=== PATIENT | female | born 1980 | race Caucasian/White ===

== ENCOUNTER 2018-10-12 19:00 | Emergency (ER) | payer MEDICAID, SELFPAY ==
[2018-10-12 19:07] VITALS: BP 126/76; PULSE 76; RESP 14; TEMP 36.9; O2SAT 98
--- NOTE | 2018-10-12 19:14 | ED.GENADUL_ITS ---
Discharge Plan Disposition Patient Disposition: HOME Condition: Stable Discharge Details Chief Complaint: RashLesion Clinical Impression: Urticaria Primary Care Provider: Gala Matute ED Provider: Jin Johnson M[place] Meds and New Rx's Prescriptions: New prednisone 20 mg tablet 60 mg PO DAILY 4 Days Qty: 12 RF: 0 No Action epinephrine 0.3 mg/0.3 mL auto-injector 0.3 mg IM ONCE RF: 0 albuterol sulfate [ProAir HFA] 90 mcg/actuation HFA aerosol inhaler 2 puff IH QID PRNRF: 0 triamcinolone acetonide 0.1 % cream 1 applic TP BID PRNRF: 0 sumatriptan succinate 50 mg tablet 50 mg PO Q2H PRN (Reason: migraine headache) Qty: 60 RF: 4 Caziant (28) 0.1/.125/.15-25 mg-mcg tablet 1 tab PO DAILY Qty: 84 RF: 4 bupropion HCl 300 mg tablet extended release 24 hr 300 mg PO QAM Qty: 90 RF: 3 hydroxyzine HCl 25 mg tablet 25 mg PO TID PRN (Reason: itching) Qty: 90 RF: 4 acyclovir 400 mg tablet 400 mg PO 5X/DAY PRN (Reason: herpes labialis) Qty: 25 RF: 3 clonazepam 0.5 mg tablet 0.5 mg PO BID PRN (Reason: anxiety) Qty: 20 RF: 0 Discharge Instructions Instructions: Urticaria (ED) Additional Instructions: follow up with your primary care provider within a week if you have difficulty breathing, abdominal pain, persistent vomit or fevers return to the emergency department for reevaluation Medical Decision Making 38 yo female come sin with itching rash on entire body for a week. Denies new meds or detergents but was at her [employer] swimming last week. She states last Saturday started with itching rash that hasn't improved with otc remedies. She has multiple areas of mild erythema on her torso and arms and legs that is not warm to touch, tender and blanches. no mucous membrane involvement and no respiratory or gi symptoms. seems consistent with urticaria, will start steroids and have her f/u with pcp, return precautions given Differential Diagnosis urticaria, dermatitis HPI General Mode of arrival: ambulatory . Date/Time Provider Initiated Documentation: 10/12/18 19:04 . Limitations to Documentation: no limitations . Information obtained by: patient . History of Present Illness 38 year old F presents to the emergency department with the chief complaint of rash, Patient reports radiation to back and abdomen. Patient started experiencing this week(s) (1) and it has been constant. No relieving factors improve symptom(s), No exacerbating factors reported . Patient did receive the following treatments prior to arrival, none Related Data Home Medications Medication Instructions Recorded Confirmed albuterol sulfate 90 mcg/actuation 2 puff IH QID PRN 11/26/17 09/26/18 aerosol inhaler epinephrine 0.3 mg/0.3 mL 0.3 mg IM ONCE 11/26/17 09/26/18 injection, auto-injector triamcinolone acetonide 0.1 % 1 applic TP BID PRN 11/26/17 09/26/18 topical cream desogestrel-ethinyl estradiol 1 tab PO DAILY #84 tab 02/12/18 09/26/18 bupropion HCl 300 mg 24 hr tablet, 300 mg PO QAM #90 tab 06/15/18 09/26/18 extended release hydroxyzine HCl 25 mg tablet 25 mg PO TID PRN #90 tab 06/15/18 09/26/18 acyclovir 400 mg tablet 400 mg PO 5X/DAY PRN #25 tab 09/15/18 09/26/18 sumatriptan succinate 50 mg tablet 50 mg PO Q2H PRN #60 tab 09/26/18 09/26/18 clonazepam 0.5 mg tablet 0.5 mg PO BID PRN #20 tab 10/08/18 prednisone 60 mg PO DAILY 4 Days #12 tab 10/12/18 Previous Rx's Medication Instructions Recorded desogestrel-ethinyl estradiol 1 tab PO DAILY #84 tab 02/12/18 bupropion HCl 300 mg 24 hr tablet, 300 mg PO QAM #90 tab 06/15/18 extended release hydroxyzine HCl 25 mg tablet 25 mg PO TID PRN #90 tab 06/15/18 acyclovir 400 mg tablet 400 mg PO 5X/DAY PRN #25 tab 09/15/18 sumatriptan succinate 50 mg tablet 50 mg PO Q2H PRN #60 tab 09/26/18 clonazepam 0.5 mg tablet 0.5 mg PO BID PRN #20 tab 10/08/18 prednisone 60 mg PO DAILY 4 Days #12 tab 10/12/18 Allergies Allergy/AdvReac Type Severity Reaction Status Date / Time venom-honey bee Allergy Severe Unverified 10/12/18 19:11 General Stated Complaint: RashLesion CARLITO: 4 Review of Systems Review of Systems All systems reviewed & are unremarkable except as noted in HPI and below Constitutional Denies chills and Denies fever(s) Cardiovascular Denies chest pain and Denies dyspnea Respiratory Denies cough and Denies dyspnea Gastrointestinal Denies abdominal pain, Denies nausea and Denies vomiting Musculoskeletal Denies joint swelling Psychiatric Denies depression [facility] Medical History (Updated 10/10/18 @ 10:28 by Reid Bradley) Migraine headache without aura (Acute) Surgical History (Updated 10/10/18 @ 10:28 by Reid Bradley) Fracture, Open Treatment (~2006) Family History Mother No problems noted. Father No problems noted. Brother No problems noted. 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 Pets and animals: No Duration: 30-45 minutes/day Frequency: 3-4 times per week Quin/Rastafarian: No preference Special quin needs: No Do you feel safe at home: Yes Do you feel safe in your relationship?: Yes Exam Const General: no acute distress Orientation: alert HENMT Head: normal to inspection Ears: external ears normal General nose exam: external nose normal Mouth: moist mucous membranes Eyes General: appearance normal, both eyes and all related structures Neck Neck: normal visual inspection Resp Effort & Inspection: normal respiratory effort and able to speak in complete sentences Cardio Rate: regular rate Skin General skin exam: elasticity normal Neuro General: alert and oriented x3 Extrem General: normal to inspection Psych Mental Status: mental status grossly normal Course Vital Signs Temperature 36.9 C 10/12/18 19:07 Pulse 76 10/12/18 19:07 Respiratory Rate 14 10/12/18 19:07 Blood Pressure 126/76 10/12/18 19:07 Pulse Oximetry 98 10/12/18 19:07 Temperature 36.9 C 10/12/18 19:07 Temperature Source Skin 10/12/18 19:07 Pulse 76 10/12/18 19:07 Respiratory Rate 14 10/12/18 19:07 Respiratory Effort Non-Labored 10/12/18 19:10 Blood Pressure 126/76 10/12/18 19:07 Blood Pressure Position Supine 10/12/18 19:07 Pulse Oximetry 98 10/12/18 19:07 Oxygen Delivery Method Room Air 10/12/18 19:07 Oxygen Flow Rate 0 10/12/18 19:07 Pain Level 0 10/12/18 19:07
[2018-10-12] MEDS: predniSONE 20 MG TAB 60 MG PO (19:24)
== END 2018-10-12 19:30 | disposition home or self-care (01) ==
PROVIDERS: Emergency Provider Emergency Medicine; PCP Family Medicine
DX: L50.9 Urticaria, unspecified (principal)
CPT/HCPCS: 99283; J7512

== ENCOUNTER 2019-01-18 14:24 | Emergency (ER) | payer MEDICAID, SELFPAY ==
--- NOTE | 2019-01-18 14:29 | ED.GENADUL_ITS ---
Discharge Plan Disposition Patient Disposition: HOME Condition: Improving Discharge Details Chief Complaint: Abd Prob Clinical Impression: Abdominal pain Primary Care Provider: Gala Matute ED Provider: Anthony Toro Home Meds and New Rx's Prescriptions: Continued epinephrine 0.3 mg/0.3 mL auto-injector 0.3 mg IM ONCE RF: 0 triamcinolone acetonide 0.1 % cream 1 applic TP BID PRNRF: 0 buspirone 7.5 mg tablet 7.5 mg PO BID Qty: 60 RF: 3 sumatriptan succinate 50 mg tablet 50 mg PO Q2H PRN (Reason: migraine headache) Qty: 60 RF: 4 mometasone 0.1 % cream 1 applic TP DAILY PRN (Reason: skin irritation) Qty: 50 RF: 0 Caziant (28) 0.1/.125/.15-25 mg-mcg tablet 1 tab PO DAILY Qty: 84 RF: 4 bupropion HCl 300 mg tablet extended release 24 hr 300 mg PO QAM Qty: 90 RF: 3 hydroxyzine HCl 25 mg tablet 25 mg PO TID PRN (Reason: itching) Qty: 90 RF: 4 acyclovir 400 mg tablet 400 mg PO 5X/DAY PRN (Reason: herpes labialis) Qty: 25 RF: 3 albuterol sulfate [ProAir HFA] 90 mcg/actuation HFA aerosol inhaler 2 puff IH QID PRN (Reason: bronchospasm) Qty: 18 RF: 6 clonazepam 0.5 mg tablet 0.5 mg PO BID PRN (Reason: anxiety) Qty: 20 RF: 0 Discharge Instructions Instructions: Abdominal Pain (ED) Additional Instructions: Follow-up with your primary care provider this week. Call tomorrow to schedule an appointment. Return to the emergency department immediately if you develop any fevers, weakness, passing out, or for any other concerning or worsening symptoms at all. Discharge Data Discharge Date/Time-TO BE ENTERED AT DEPARTURE: 01/18/19 16:56 Medical Decision Making <CARLOS A Ayala - Last Filed: 01/19/19 09:33> Patient is a 38-year-old female past medical history of herpes simplex, migraines, asthma, anxiety. She is presenting today with chief complaint of 3 days of abdominal pain. Indicates the left mid abdomen is area of maximal discomfort. Also reports she has had some epigastric pain after eating a large amount of ascitic food last night which is unusual for her. States she has a cyst in the left side of her abdomen which is no. This area seems to radiate to the left upper quadrant to mid left abdomen. She denies any nausea vomiting. No change in appetite. No change in bowel or bladder habits. States that she drinks socially but has not had any alcohol recently. Pain radiates into the back but she indicates that the SI joint and states that the pain on palpation. Reports that she has had a history of kidney stone but does not believe this feels the same. No hematuria. No dysuria or change in urinary habits. No vaginal discharge. Denies any melena or hematochezia. On exam, patient appears nontoxic. Vital signs within normal limits. Abdominal exam significant for tenderness in epigastric and left upper quadrants. No peritoneal findings, no guarding, no rebound. No CVA tenderness. Has pain with direct palpation over the left SI joint. This seems more consistent with muscular skeletal. Patient was given GI cocktail. Feels much improved. I advised that this is likely associated with her eating hot dogs that she does not do as well as spicy food. She is having tenderness in the left side, feel that imaging is appropriate. Is too high to be consistent with ovarian torsion. Patient endorses occasional alcohol use, have considered pancreatitis. Will obtain labs and CT scan. Patient does have a history of kidney stone, will obtain a urinalysis. However, she does not feel that this is consistent with the previous stone she has had. At the end of my shift, care was transitioned to Dr. Briceno with imaging pending. Labs reviewed with no significant abnormality. <Anthony Toro MD - Last Filed: 01/18/19 17:29> Patient CARE signed out at change of shift. CT scan came back without any acute abnormalities. Therefore, the patient will be discharged home. She will be provided return precautions and discharge instructions. She is feeling better. HPI <CARLOS A Ayala - Last Filed: 01/19/19 09:33> General Mode of arrival: ambulatory . Date/Time Provider Initiated Documentation: 01/18/19 14:28 . Limitations to Documentation: no limitations . Information obtained by: patient and RN notes reviewed . History of Present I llness 38 year old F presents to the emergency department with the chief complaint of left sided abdominal pain, described as moderate, with intensity rated at 7. Quality is described as aching, and is localized to the abdomen. Patient reports radiation to back (left SI joint). Patient started experiencing this day(s) (3) and it has been constant. Immobilization improves symptom(s), Eating worsens symptoms (causes increased pain in epigastric region) and Movement worsens symptoms . Patient notes denies chest pain, cough, diaphoresis, fever/chills, headaches, loss of appetite, nausea/vomiting, rash and shortness of breath. Patient did receive the following treatments prior to arrival, none Related Data Home Medications Medication Instructions Recorded Confirmed epinephrine 0.3 mg/0.3 mL 0.3 mg IM ONCE 11/26/17 01/18/19 injection, auto-injector triamcinolone acetonide 0.1 % 1 applic TP BID PRN 11/26/17 01/18/19 topical cream desogestrel-ethinyl estradiol 1 tab PO DAILY #84 tab 02/12/18 01/18/19 bupropion HCl 300 mg 24 hr tablet, 300 mg PO QAM #90 tab 06/15/18 01/18/19 extended release hydroxyzine HCl 25 mg tablet 25 mg PO TID PRN #90 tab 06/15/18 01/18/19 sumatriptan succinate 50 mg tablet 50 mg PO Q2H PRN #60 tab 09/26/18 01/18/19 mometasone 0.1 % topical cream 1 applic TP DAILY PRN #50 gm 10/21/18 01/18/19 buspirone 7.5 mg tablet 7.5 mg PO BID #60 tab 12/03/18 01/18/19 acyclovir 400 mg tablet 400 mg PO 5X/DAY PRN #25 tab 12/16/18 01/18/19 albuterol sulfate 90 mcg/actuation 2 puff IH QID PRN #18 gm 12/16/18 01/18/19 aerosol inhaler clonazepam 0.5 mg tablet 0.5 mg PO BID PRN #20 tab 12/16/18 01/18/19 Previous Rx's Medication Instructions Recorded desogestrel-ethinyl estradiol 1 tab PO DAILY #84 tab 02/12/18 bupropion HCl 300 mg 24 hr tablet, 300 mg PO QAM #90 tab 06/15/18 extended release hydroxyzine HCl 25 mg tablet 25 mg PO TID PRN #90 tab 06/15/18 sumatriptan succinate 50 mg tablet 50 mg PO Q2H PRN #60 tab 09/26/18 mometasone 0.1 % topical cream 1 applic TP DAILY PRN #50 gm 10/21/18 buspirone 7.5 mg tablet 7.5 mg PO BID #60 tab 12/03/18 acyclovir 400 mg tablet 400 mg PO 5X/DAY PRN #25 tab 12/16/18 albuterol sulfate 90 mcg/actuation 2 puff IH QID PRN #18 gm 12/16/18 aerosol inhaler clonazepam 0.5 mg tablet 0.5 mg PO BID PRN #20 tab 12/16/18 Allergies Allergy/AdvReac Type Severity Reaction Status Date / Time venom-honey bee Allergy Severe Unverified 01/18/19 14:42 General CARLITO: 4 Review of Systems <CARLOS A Ayala - Last Filed: 01/19/19 09:33> Constitutional Constitutional: Reports as per HPI, Denies chills, Denies fatigue, Denies fever(s) and Denies headache(s) ENT Ears, Nose, Mouth, and Throat: Denies headache(s) Cardiovascular Cardiovascular: Reports as per HPI, Denies chest pain and Denies dyspnea Respiratory Respiratory: Reports as per HPI, Denies cough and Denies dyspnea Gastrointestinal Gastrointestinal: Reports as per HPI Musculoskeletal Musculoskeletal: Reports as per HPI and Denies back pain Integumentary/Breasts Skin/Breast: Reports as per HPI and Denies rash Neurologic Neurologic: Reports as per HPI and Denies headache(s) Endocrine Endocrine: Denies fatigue PFSH <CARLOS A Ayala - Last Filed: 01/19/19 09:33> Medical History Migraine headache without aura (Acute) Surgical History Fracture, Open Treatment (~2006) left elbow Family History (Updated 12/04/18 @ 12:11 by Luc Martin) Mother No problems noted. Father No problems noted. Brother No problems noted. Aunt Cancer Maternal Uncle Pancreatic cancer STAGE 4 Maternal Cousin Bladder cancer Maternal Grandfather No problems noted. Paternal Grandfather No problems noted. Maternal Grandmother No problems noted. Paternal Grandmother No problems noted. Social History Smoking/Tobacco Use Status: Never Alcohol Intake: current Alcohol Intake frequency: a few times a week Drug use: Occasionally Substance use type: marijuana Details: had vianey today-2 Caregiver/Support person: No Housing: house Communication Needs: None current occupation: [employer] Pets and animals: No Sexually active: Yes Do you think of yourself as: straight/heterosexual Current gender identity: male What is your relationship status?: How often do you talk on the phone with friends or family?: three or more times per week How often do you get together with friends or relatives?: once per week How often do you attend confucianist or pentecostal services?: decline to answer Do you belong to any clubs or organized social groups?: no Panel score (0-1 are the most socially isolated patients): 1 What type of physical activity do you participate in: walking and other Duration: 15-30 minutes/day Frequency: 3-4 times per week Quin/Scientologist: None Special quin needs: No Seatbelt use: always Helmet use: Yes Helmet use: sometimes Drive intox or ride w/intox tractor driver: No Do you feel safe at home: Yes Do you feel safe in your relationship?: Yes Exam <CARLOS A Ayala - Last Filed: 01/19/19 09:33> Const General: cooperative, healthy appearing, comfortable, no acute distress and well developed Nutritional Appearance: average body habitus and well nourished Orientation: alert and awake [facility] [place] Head: normal to inspection Mouth: moist mucous membranes Resp Effort & Inspection: normal respiratory effort, able to speak in complete sentences and no respiratory distress Auscultation: clear to auscultation bilaterally, no rales, no rhonchi and no wheezes Cardio Rate: regular rate Rhythm: regular rhythm Heart Sounds: S1 normal and S2 normal GI Inspection: normal to inspection (post surgical changes, well healed midline incision, implantable device), no edema, non-distended, obesity, no visible herniation, no visible pulsation and No visible peristalsis Palpation: soft, no hepatosplenomegaly, not firm, no guarding, no hernias, not rigid and nontender Percussion: normal to percussion Auscultation: normal bowel sounds Rectal Exam - female: heme negative stool Back/Spine/Pelvis Back: no CVA tenderness Skin General skin exam: no rashes or lesions noted Trauma: no lacerations or abrasions Neuro General: alert and awake Cognition: normal cognition Speech: speech normal Extrem General: edema Laterality: bilateral (equal bilaterally with compression hose in place) Psych Appearance: grossly normal and well kempt Mental Status: mental status grossly normal Speech and Movement: speech and movement normal Sign Out <CARLOS A Ayala - Last Filed: 01/19/19 09:33> Sign Out Data: Sign Out Comment: At the end of my shift, care was transitioned to Dr. Toro with imaging pending. Labs are reassuring. Patient endorsing epigastric and left upper quadrant pain. Has received GI cocktail. If no acute pathology, plan to DC home with follow-up with primary care after reevaluation. Last updated by Belkys Doran PA at 01/18/19 16:01
[2019-01-18 14:38] VITALS: BP 109/57; PULSE 64; RESP 16; TEMP 36.6; O2SAT 100
[2019-01-18 14:52] LABS: Bilirubin Negative (Negative); Blood Negative (Negative); Clarity Clear (Clear); Glucose Negative (Negative); Ketones Negative (Negative); Leukocyte Esterase Small (Negative); Nitrite Negative (Negative); Urobilinogen 0.2 EU/dL (Up TO 0.2)
[2019-01-18 15:01] LABS: Bacteria Rare HPF (Negative); C & S Indicated? Yes; Casts Negative LPF (Negative); Crystals Negative HPF (Negative); Epithelial Cells Few HPF (Negative); Mucus Negative (Negative); RBC Negative (0-2)
--- NOTE | 2019-01-18 15:04 | DI.CT_ITS ---
EXAM: CT ABDOMEN PELVIS W CLINICAL HISTORY: left sided abdominal pain x 3 days TECHNIQUE: 100 cc of Omnipaque 350 IV. No oral contrast. COMPARISON: ABD PELVIS WITH CONTRAST from 05/19/2017 FINDINGS: The liver, gallbladder, spleen, pancreas, adrenals and kidneys are unremarkable. There is no free a ir or free fluid. The bowel is not well evaluated without oral contrast. No bowel dilatation or inf lammatory changes are seen. The appendix appears normal. The uterus, bladder and ovaries are unrema rkable. There are mild degenerative disc changes. IMPRESSION: Negative CT of the abdomen and pelvis. No acute abnormality.
[2019-01-18] MEDS: Normal Saline 1,000 ML 1000 ML IV (15:31)
[2019-01-18 15:40] LABS: Abs Immature Grans 0.02 k/cumm (0.0-0.09); Absolute Basophil Count 0.05 k/cumm (0.0-0.2); Absolute Lymphocyte Count 3.15 k/cumm (1.2-3.4); Absolute Monocyte Count 0.62 k/cumm (0.11-0.7); Absolute Neutrophil Count 6.02 k/cumm (1.2-6.7); Basophils % 0.5; HCT 38.6 % (36.0-46.0); HGB 13.1 g/dL (12.0-15.5); Immature Grans % 0.2; Lymphocytes % 31.9; Mean Corp. HGB Concentration 33.9 g/dL (32.0-36.0); Mean Corpuscular Hemoglobin 30.2 pg (27.0-33.0); Mean Corpuscular Volume 88.9 fL (80-95); Mean Platelet Volume 10.3 fL (8.0-11.0); Monocytes % 6.3; Neutrophils % 61.1; Platelet Count 357 x1000/uL (130-400); RBC 4.34 m/cumm (4.00-5.20); RBC Distribution Width 12.4 % (11.7-14.6); White Blood Cell Count 9.86 k/cumm (4.4-10.8)
[2019-01-18 15:46] LABS: Lipase 89 U/L (73-393)
[2019-01-18 15:49] LABS: ALT 36 U/L (14-59); AST 17 U/L (15-37); Albumin 3.7 g/dL (3.4-5.0); Alkaline Phosphatase 78 U/L (46-116); Anion Gap 7.4 mmol/L (3-11); BUN 14 mg/dL (7-18); Bilirubin, Total 0.4 mg/dL (0.2-1.0); CO2 29.6 mmol/L (21.0-32.0); CREATININE 0.72 mg/dL (0.55-1.02); Chloride 103 mmol/L (98-107); Glucose 64 mg/dL (70-100); Potassium 3.6 mmol/L (3.5-5.1); Sodium 140 mmol/L (136-145); Total Protein 7.2 g/dL (6.4-8.2)
[2019-01-18] MEDS: Omnipaque 350 MG/ML 100 ML BTL IJ (15:49)
--- NOTE | 2019-01-18 16:39 | DI.VRAD_ITS ---
PROCEDURE INFORMATION: Exam: CT Abdomen And Pelvis With Contrast Exam date and time: 01/18/2019 3:44 PM Clinical history: 38 years old, female; Abdominal pain TECHNIQUE: Imaging protocol: Computed tomography of the abdomen and pelvis with intravenous contrast. COMPARISON: CT ABD PELVIS WITH CONTRAST 05/19/2017 4:37 PM FINDINGS: Liver: Incidental note is made of focal fatty infiltration at the level of the fissure for the ligamentum teres, anatomic variant. Mild hepatomegaly. Gallbladder and bile ducts: Normal. No calcified stones. No ductal dilation. Pancreas: Normal. No ductal dilation. Spleen: Normal. No splenomegaly. Adrenals: Normal. No mass. Kidneys and ureters: Left renal cyst. Stomach and bowel: Unremarkable. No obstruction. No mucosal thickening. Appendix: The appendix fairly well seen, within normal limits area Intraperitoneal space: Unremarkable. No free air. No significant fluid collection. Vasculature: Unremarkable. No abdominal aortic aneurysm. Lymph nodes: Unremarkable. No enlarged lymph nodes. Bladder: Unremarkable as visualized. Reproductive: The uterus is displaced to the right, anatomic variant. Bones/joints: Unremarkable. No acute fracture. Soft tissues: Unremarkable. IMPRESSION: No acute abnormality seen to account for symptoms. COMMENT: Preliminary interpretation is based on receipt of 1081 image(s). A final report will be issued subsequently. Dictated and Authenticated by: Nikki Lopez MD. Ordering:ARAMIS Rizvi MD
[2019-01-18 16:50] VITALS: BP 112/64; PULSE 64; RESP 15; TEMP 36.6; O2SAT 100
== END 2019-01-18 16:56 | disposition home or self-care (01) ==
PROVIDERS: Physician Assistant; Emergency Provider Emergency Medicine; PCP Family Medicine
DX: R10.12 Left upper quadrant pain (principal); R10.13 Epigastric pain; Z87.442 Personal history of urinary calculi
CPT/HCPCS: 80053; 81025; 83690; 96360; 99285; 74177; 81003; 81015; 85025; 87086; 99284; J3490

== ENCOUNTER 2019-04-13 11:43 | Outpatient (CLI) | payer MEDICAID, SELFPAY ==
--- NOTE | 2019-04-13 13:33 | DI.US_ITS ---
EXAM: US RENAL CLINICAL HISTORY: + AND LEFT SIDED FLANK PAIN, O26.899 TRACE BLOOD, R10.9 ABDOMINAL PAIN TECHNIQUE: Ultrasound performed using standard protocol. COMPARISON: US OB 1ST TRIMESTER from 04/13/2019 FINDINGS: An intrauterine gestation is noted. The kidneys are normal in size and echogenicity and show normal parenchymal thickness. No hydronephrosis, stone or mass is seen. There are no perinephric collectio ns. Prevoid bladder volume measured 64 cc. There is no postvoid residual. Both ureteral jets were visualized. IMPRESSION: Negative renal ultrasound.
--- NOTE | 2019-04-13 13:47 | DI.US_ITS ---
EXAM: US OB 1ST TRIMESTER CLINICAL HISTORY: , dating us Z34.90 SUPERVISION NORMAL TECHNIQUE: Ultrasound performed using standard protocol. COMPARISON: No exams were available for comparison FINDINGS: There is a gestational sac seen appropriately positioned within the endometrium. [place]-rump length measurements correspond to 8 weeks 4 days and an EDC of 19 November 2019. The yolk sac is seen. Fet al cardiac activity is demonstrated at 173 beats per minute. Corpus luteum cyst is seen on the right ovary. There is no free fluid. IMPRESSION: Living intrauterine gestation of 8 weeks 4 days.
== END 2019-04-13 12:03 ==
PROVIDERS: PCP Family Medicine
DX: R10.32 Left lower quadrant pain (principal); O26.891 Other specified pregnancy related conditions, first trimester; Z3A.08 8 weeks gestation of pregnancy; N83.11 Corpus luteum cyst of right ovary
CPT/HCPCS: 76770; 76801

== ENCOUNTER 2019-04-27 11:26 | Outpatient (CLI) | payer MEDICAID, SELFPAY ==
[2019-04-27 13:11] LABS: Abs Immature Grans 0.02 k/cumm (0.0-0.09); Absolute Basophil Count 0.05 k/cumm (0.0-0.2); Absolute Eosinophil Count 0.17 k/cumm (0.0-0.7); Absolute Lymphocyte Count 2.64 k/cumm (1.2-3.4); Absolute Monocyte Count 0.76 k/cumm (0.11-0.7); Absolute Neutrophil Count 6.24 k/cumm (1.2-6.7); Basophils % 0.5; Eosinophils % 1.7; Immature Grans % 0.2 %; Lymphocytes % 26.7; Mean Corp. HGB Concentration 33.3 g/dL (32.0-36.0); Mean Corpuscular Hemoglobin 29.3 pg (27.0-33.0); Mean Platelet Volume 10.8 fL (8.0-11.0); Monocytes % 7.7; Neutrophils % 63.2; Platelet Count 316 x1000/uL (130-400); RBC 4.09 m/cumm (4.00-5.20); White Blood Cell Count 9.88 k/cumm (4.4-10.8)
[2019-04-27 14:32] LABS: TSH (W/Ref FT4) 1.32 uIU/mL (0.36-3.74)
[2019-04-28 09:22] LABS: Hepatitis B Surface Ag Negative (Negative)
[2019-04-28 09:50] LABS: Hepatitis C Ab w Rflx HCV PCR Negative (Negative)
[2019-04-28 10:25] LABS: HIV-1/2 Ag & Ab Screen Negative (Negative)
[2019-04-28 10:49] LABS: Rubella IgG Ab (UVM) Positive (See Note); Varicella IgG Antibody Positive (See Note)
[2019-04-28 16:23] LABS: Syphilis Total Ab w/Reflex Nonreactive (Nonreactive)
== END 2019-04-27 11:46 ==
PROVIDERS: PCP Family Medicine; Visit Provider Advanced Practice Midwife
DX: Z34.91 Encounter for supervision of normal pregnancy, unspecified, first trimester (principal); Z11.4 Encounter for screening for human immunodeficiency virus [HIV]; Z11.59 Encounter for screening for other viral diseases; Z01.84 Encounter for antibody response examination
CPT/HCPCS: 36415; 86787; 86803; 86850; 86900; 86901; 87340; 87389; 84443; 85025; 86762; 86780

== ENCOUNTER 2019-04-27 13:02 | Outpatient (REF) | payer MEDICAID, SELFPAY ==
[2019-04-27 15:08] LABS: *AMPHETAMINES SCREEN URINE Negative (Negative); *BARBITURATES SCREEN URINE Negative (Negative); *BENZODIAZEPINES SCREEN URINE Negative (Negative); Cannabinoids THC POSITIVE (Negative); Cocaine Screen,Urine Negative (Negative); METHADONE URINE SCREEN Negative (Negative); OPIATES URINE SCREEN Negative (Negative)
[2019-04-27 15:09] LABS: Tricyclic Antidepressants Negative (Negative)
[2019-04-28 13:10] LABS: Chlamydia Result Negative (Negative); GC Result Negative (Negative)
[2019-04-30 16:13] LABS: Buprenorphine Negative; Norbuprenorphine Negative
== END 2019-04-27 13:22 ==
LOC: LBN 13:02
PROVIDERS: PCP Family Medicine; Visit Provider Advanced Practice Midwife
DX: Z34.91 Encounter for supervision of normal pregnancy, unspecified, first trimester (principal); Z11.3 Encounter for screening for infections with a predominantly sexual mode of transmission
CPT/HCPCS: 80307; 87491; 87591; 87086

== ENCOUNTER 2019-05-26 12:04 | Outpatient (REF) | payer MEDICAID, SELFPAY ==
[2019-05-26 14:18] LABS: *AMPHETAMINES SCREEN URINE Negative (Negative); *BARBITURATES SCREEN URINE Negative (Negative); *BENZODIAZEPINES SCREEN URINE Negative (Negative); Cannabinoids THC Negative (Negative); Cocaine Screen,Urine Negative (Negative); METHADONE URINE SCREEN Negative (Negative); OPIATES URINE SCREEN Negative (Negative)
[2019-05-26 14:20] LABS: Tricyclic Antidepressants Negative (Negative)
[2019-05-30 13:34] LABS: Buprenorphine Negative; Norbuprenorphine Negative
== END 2019-05-26 12:24 ==
LOC: LBN 12:04
PROVIDERS: PCP Family Medicine; Visit Provider Advanced Practice Midwife
DX: F12.90 Cannabis use, unspecified, uncomplicated (principal); Z34.92 Encounter for supervision of normal pregnancy, unspecified, second trimester
CPT/HCPCS: 80307

== ENCOUNTER 2019-06-29 19:39 | Emergency (ER) | payer MEDICAID, SELFPAY ==
--- NOTE | 2019-06-29 19:45 | W.ED.GENAD ---
Discharge Plan Disposition Patient Disposition: HOME Condition: Good Discharge Details Chief Complaint: RashLesion Clinical Impression: Urticaria Primary Care Provider: Gala Matute ED Provider: Belkys Doran Home Meds and New Rx's Prescriptions: Continued epinephrine 0.3 mg/0.3 mL auto-injector 0.3 mg IM ONCE RF: 0 aspirin 81 mg tablet,delayed release (DR/EC) 81 mg PO DAILY RF: 0 prenat.vits,shanae,[id number]-ebmgz Tablet 1 tab PO DAILY RF: 0 clonazepam 0.5 mg tablet 0.5 mg PO BID PRN (Reason: anxiety) Qty: 20 RF: 0 acyclovir 400 mg tablet 400 mg PO 5X/DAY PRN (Reason: herpes labialis) Qty: 25 RF: 3 albuterol sulfate [ProAir HFA] 90 mcg/actuation HFA aerosol inhaler 2 puff IH QID PRN (Reason: bronchospasm) Qty: 18 RF: 6 magnesium 250 mg Tablet 500 mg PO DAILY RF: 0 Discharge Instructions Instructions: Urticaria (ED) Additional Instructions: Encourage water intake. You are given dosing of Claritin tonight. You may take Claritin or Benadryl based on the package inserts. Please call women's wellness tomorrow to discuss any further symptoms and management options. You may try cool compresses over the area. Please try to not itch or scratch at this. Topical options as discussed. If you develop fever/chills, difficulty breathing, shortness of breath, lesions in your mouth or the new/worsening symptoms please seek care urgently once again. Referrals: Anne-Marie Figueroa MD [ [facility] STAFF PHYSICIAN] - Discharge Data Discharge Date/Time-TO BE ENTERED AT DEPARTURE: 06/29/19 20:26 Medical Decision Making Patient is a pleasant 39-year-old female presenting to complaint an itchy rash on her neck and face. She reports that this came on yesterday after being involved. She reports that she had similar exposures neurogenic plant historically. Reports she took Benadryl this morning which made her quite fatigued. She denies any shortness of breath. No difficulty breathing. Denies any intraoral lesions. Does not note swelling on the right upper lid. No visual changes. Patient is 5 months gestation. She reports uncomplicated . Was seen last week by [facility]. On exam, patient is resting comfortably. She does have an urticarial rash in the right side of her face and on the bilateral aspect of the anterior neck. This is not consistent with shingles. I see no evidence of cellulitis or overriding infection. She has no open wounds. She has been itching is here and continues to do so. No intraoral lesions. No stridor or wheezing. Lungs are clear bilaterally. Patient discussed treatment options. This does appear fairly mild. I do not feel that steroids are warranted at this time but I did advise Claritin as the patient expressed that Benadryl made her quite fatigued. She will be given a dose here. I did advise that she contact women's wellness tomorrow to discuss her current symptoms and any other options that may be of benefit. I also advised to try to avoid contact with plant that is because this issue with her historically. She does return precautions. We discussed worsening signs of reaction as well as signs of infection. All of her questions or concerns were addressed and she is agreement this plan. Nursing staff checked heart tones, rate of 142. Patient is feeling well in this regard. HPI General Mode of arrival: ambulatory. Date/Time Provider Initiated Documentation: 06/29/19 19:42. Limitations to Documentation: no limitations. Information obtained by: patient and RN notes reviewed. History of Present Illness 39 year old F presents to the emergency department with the chief complaint of rash on face/neck, described as moderate and similar to prior episodes, Quality is described as other (itchy), and is localized to the face and neck. Patient started experiencing this day(s) (1) and it has been constant. No relieving factors improve symptom(s), No exacerbating factors reported . Patient notes no other symptoms.. Patient did receive the following treatments prior to arrival, other (benadryl) Related Data Home Medications Medication Instructions Recorded Confirmed epinephrine 0.3 mg/0.3 mL 0.3 mg IM ONCE 11/26/17 06/29/19 injection, auto-injector acyclovir 400 mg tablet 400 mg PO 5X/DAY PRN #25 tab 05/08/19 06/29/19 clonazepam 0.5 mg tablet 0.5 mg PO BID PRN #20 tab 05/08/19 06/29/19 aspirin 81 mg tablet,delayed 81 mg PO DAILY 05/26/19 06/29/19 release prenat.vits,shanae,eif-orqe-ioquc 1 tab PO DAILY 05/26/19 06/29/19 albuterol sulfate 90 mcg/actuation 2 puff IH QID PRN #18 gm 06/12/19 06/29/19 aerosol inhaler magnesium 500 mg PO DAILY 06/29/19 06/29/19 Previous Rx's Medication Instructions Recorded acyclovir 400 mg tablet 400 mg PO 5X/DAY PRN #25 tab 05/08/19 clonazepam 0.5 mg tablet 0.5 mg PO BID PRN #20 tab 05/08/19 albuterol sulfate 90 mcg/actuation 2 puff IH QID PRN #18 gm 06/12/19 aerosol inhaler Allergies Allergy/AdvReac Type Severity Reaction Status Date / Time venom-honey bee Allergy Severe Verified 06/29/19 19:54 General CARLITO: 4 Review of Systems Constitutional Constitutional: Reports as per HPI, Denies chills, Denies fatigue, Denies fever(s) and Denies poor appetite Cardiovascular Cardiovascular: Denies chest pain, Denies dyspnea and Denies dyspnea on exertion Respiratory Respiratory: Denies chest congestion, Denies cough, Denies dyspnea, Denies dyspnea on exertion, Denies stridor and Denies wheezing Genitourinary Genitourinary: Reports system reviewed and no additional complaints, except as documented ( currently 8 months gestation) Musculoskeletal Musculoskeletal: Reports as per HPI Integumentary/Breasts Skin/Breast: Reports as per HPI Neurologic Neurologic: Reports as per HPI, Denies sensory deficit and Denies paresthesias Endocrine Endocrine: Denies fatigue Allergic/Immunologic Allergic/Immunologic: Denies wheezing [facility] Medical History (Updated 06/29/19 @ 20:05 by CARLOS A Ayala) Flank pain in patient (Acute) Marijuana smoker (Acute) Migraine headache without aura (Acute) Therapeutic (Acute) Surgical History Fracture, Open Treatment (~2006) left elbow Social History Smoking/Tobacco Use Status: Never Alcohol Intake: former Drug use: Current Sobriety Substance use type: marijuana Details: had marijuana today-2 Caregiver/Support person: No Housing: house Communication Needs: None 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 Pets and animals: No Sexually active: Yes Do you think of yourself as: straight/heterosexual Current gender identity: male What is your relationship status?: How often do you talk on the phone with friends or family?: three or more times per week How often do you get together with friends or relatives?: once per week How often do you attend buddhist or protestant services?: decline to answer Do you belong to any clubs or organized social groups?: no Panel score (0-1 are the most socially isolated patients): 1 What type of physical activity do you participate in: walking and other Duration: 15-30 minutes/day Frequency: 3-4 times per week Quin/Denominational: None Special quin needs: No Seatbelt use: always Helmet use: Yes Helmet use: sometimes Drive intox or ride w/intox 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 Do you feel safe at home: Yes Do you feel safe in your relationship?: Yes History History 2 Para 0 Hx # Term Pregnancies 0 Multiple births 0 Hx # Pregnancies 0 Ectopic pregnancies 0 AB induced 1 Hx Number of Living Children 0 AB spontaneous 0 Exam Const General: cooperative, healthy appearing, comfortable, no acute distress and well developed Nutritional Appearance: average body habitus and well nourished Orientation: alert and awake [facility] Head: normal to inspection, normocephalic and atraumatic Ears: hearing grossly normal bilaterally, external ears normal and TM's normal bilaterally General nose exam: external nose normal Face and sinus: abnormal facial exam (patient has urticarial rash on chin and right cheek ), no abrasions, no crepitus, no ecchymosis, no erythema, no edema, no fluctuance, no lacerations, no maxillary instability and no tenderness Mouth: oral mucosae normal, lip normal, tongue normal, salivary ducts normal, oropharynx normal, moist mucous membranes, no audible dysphonia, no muffled voice and normal oral mucosae Teeth and gingiva: dentition normal and gingiva normal Throat: posterior oropharynx normal, tonsils normal and uvula midline Eyes Visual Larsen: normal visual larsen by confrontation Alignment and Position: alignment normal and position normal Periorbital: periorbital findings abnormal left (Patient has some minor swelling of the left upper lid, no pain or erythema) Eyelids: abnormal eyelids (As above) Conjunctivae: conjunctivae normal Sclera: sclerae normal Cornea: corneas normal Pupils: PERRL and normal by confrontation EOM: EOM intact bilaterally Neck Neck: not normal to visual inspection (urticarial rash on anterior aspect of neck- see drawing below), full ROM, no lymphadenopathy, no meningeal signs, trachea midline, supple and no anterior neck swelling Neck images: 1. mild urticarial rash, no swelling, no fluctuance, no crepitus. Patient is itching area Resp Effort & Inspection: normal respiratory effort, able to speak in complete sentences and no respiratory distress Auscultation: clear to auscultation bilaterally and no wheezes Cardio Rate: regular rate Rhythm: regular rhythm Heart Sounds: S1 normal and S2 normal Neuro General: patient alert and patient awake Cognition: normal cognition Speech: speech normal Gait: normal gait Sensory Exam: no sensory deficits noted Psych Appearance: grossly normal and well kempt Mental Status: mental status grossly normal Speech and Movement: speech and movement normal
[2019-06-29 19:49] VITALS: BP 117/65; PULSE 81; RESP 20; TEMP 37.4; O2SAT 98
[2019-06-29] MEDS: Loratidine 10 MG TAB PO (20:10)
[2019-06-29 20:33] VITALS: BP 117/65; PULSE 81; RESP 20; TEMP 37.4; O2SAT 98
== END 2019-06-29 20:26 | disposition home or self-care (01) ==
LOC: ER 20:31
PROVIDERS: Emergency Provider Physician Assistant; PCP Family Medicine
DX: O99.712 Diseases of the skin and subcutaneous tissue complicating pregnancy, second trimester (principal); L50.8 Other urticaria; Z3A.20 20 weeks gestation of pregnancy
CPT/HCPCS: 99282

== ENCOUNTER 2019-06-30 10:04 | Emergency (ER) | payer MEDICAID, SELFPAY ==
[2019-06-30 10:10] VITALS: BP 123/76; PULSE 81; RESP 17; TEMP 36.6; O2SAT 100
--- NOTE | 2019-06-30 10:24 | ED.GENADUL_ITS ---
Discharge Plan Disposition Patient Disposition: HOME Condition: Stable Discharge Details Chief Complaint: RashLesion Clinical Impression: Allergic reaction, Hives Primary Care Provider: Gala Matute ED Provider: Mitchell Monroy Home Meds and New Rx's Prescriptions: New diphenhydramine HCl [Benadryl Allergy] 25 mg tablet 25 mg PO TID PRN (Reason: allergic reaction) Qty: 30 RF: 0 prednisone 20 mg tablet 40 mg PO DAILY Qty: 8 RF: 0 Continued aspirin 81 mg tablet,delayed release (DR/EC) 81 mg PO DAILY RF: 0 prenat.vits,shanae,[id number]-[id number] Tablet 1 tab PO DAILY RF: 0 clonazepam 0.5 mg tablet 0.5 mg PO BID PRN (Reason: anxiety) Qty: 20 RF: 0 acyclovir 400 mg tablet 400 mg PO 5X/DAY PRN (Reason: herpes labialis) Qty: 25 RF: 3 albuterol sulfate [ProAir HFA] 90 mcg/actuation HFA aerosol inhaler 2 puff IH QID PRN (Reason: bronchospasm) Qty: 18 RF: 6 magnesium 250 mg Tablet 500 mg PO DAILY RF: 0 No Action epinephrine 0.3 mg/0.3 mL auto-injector 0.3 mg IM ONCE RF: 0 Discharge Instructions Instructions: Urticaria (ED), General Allergic Reaction (ED) Additional Instructions: Please take Benadryl 25 to 50 mg every 8 hours as needed for allergic reaction. Take prednisone as prescribed. You received a intramuscular dose of steroid here in the emergency department today. Your next dose of steroid is tomorrow. Please contact your mill machinist/meat clerk to arrange follow-up. Return to the ER for any worsening or new concerning symptoms. Referrals: [facility] [Provider Group] Discharge Data Discharge Date/Time-TO BE ENTERED AT DEPARTURE: 06/30/19 10:40 Medical Decision Making 39-year-old female here with hives involving face, neck and chest, refractory to Claritin. Suspect hives related to environmental allergen. Given severe illness plan for Benadryl and steroid treatment. I called and discussed presentation with Dr. Figueroa, on-call OB, who agrees with treatment and notes low risk for harm given out of first trimester. I spoke with the patient and she provided informed consent to treat. Patient was provided initial dose of Benadryl and Solu-Medrol 60 mg IM here in the [place] apartment. I suggested patient stay to monitor for resolution of symptoms and she declined with informed refusal of that plan. She prefers to go home at this time. I will prescribe continued prednisone burst and Benadryl over the next 4 days. HPI General Mode of arrival: ambulatory . Date/Time Provider Initiated Documentation: 06/30/19 10:22 . Limitations to Documentation: no limitations . Information obtained by: patient . HPI Narrative: 39-year-old female, 5 months , here with rash. Patient notes severe itchy red rash on her face, neck and upper chest. Rash started 2 days ago after going for a hike and has persisted. She was seen here yesterday and diagnosed with urticaria and and started on Claritin. This has not helped. She denies associated swelling of her mouth or throat. No difficulty breathing. No wheezing. Patient is quite frustrated and notes that anytime she goes outside she seems to develop an allergic reaction. She has been seen by an american history professor in the past. Related Data Home Medications Medication Instructions Recorded Confirmed epinephrine 0.3 mg/0.3 mL 0.3 mg IM ONCE 11/26/17 06/29/19 injection, auto-injector acyclovir 400 mg tablet 400 mg PO 5X/DAY PRN #25 tab 05/08/19 06/29/19 clonazepam 0.5 mg tablet 0.5 mg PO BID PRN #20 tab 05/08/19 06/29/19 aspirin 81 mg tablet,delayed 81 mg PO DAILY 05/26/19 06/29/19 release prenat.vits,shanae,lkb-bfvq-atbql 1 tab PO DAILY 05/26/19 06/29/19 albuterol sulfate 90 mcg/actuation 2 puff IH QID PRN #18 gm 06/12/19 06/29/19 aerosol inhaler magnesium 500 mg PO DAILY 06/29/19 06/29/19 diphenhydramine HCl [Benadryl 25 mg PO TID PRN #30 tab 06/30/19 Allergy] prednisone 40 mg PO DAILY #8 tab 06/30/19 Previous Rx's Medication Instructions Recorded acyclovir 400 mg tablet 400 mg PO 5X/DAY PRN #25 tab 05/08/19 clonazepam 0.5 mg tablet 0.5 mg PO BID PRN #20 tab 05/08/19 albuterol sulfate 90 mcg/actuation 2 puff IH QID PRN #18 gm 06/12/19 aerosol inhaler diphenhydramine HCl [Benadryl 25 mg PO TID PRN #30 tab 06/30/19 Allergy] prednisone 40 mg PO DAILY #8 tab 06/30/19 Allergies Allergy/AdvReac Type Severity Reaction Status Date / Time venom-honey bee Allergy Severe Verified 06/29/19 19:54 General Stated Complaint: RashLesion CARLITO: 4 Review of Systems All systems reviewed & are unremarkable except as noted in HPI and below Constitutional Constitutional: Denies fever(s) ENT Ears, Nose, Mouth, and Throat: Reports as per HPI Integumentary/Breasts Skin/Breast: Reports as per HPI [facility] Medical History Allergic reaction (Acute) 06/30/2019 swelling on right side of face, throat pain, urticaria, and papules. Patient recommended to be seen in emergency room. Flank pain in patient (Acute) Marijuana smoker (Acute) Migraine headache without aura (Acute) Therapeutic (Acute) Surgical History Fracture, Open Treatment (~2006) left elbow Family History Mother No problems noted. Father No problems noted. Brother No problems noted. Aunt Cancer Maternal Uncle Pancreatic cancer STAGE 4 Maternal Cousin Bladder cancer Maternal Grandfather No problems noted. Paternal Grandfather No problems noted. Maternal Grandmother No problems noted. Paternal Grandmother No problems noted. Social History Smoking/Tobacco Use Status: Never Alcohol Intake: former Drug use: Current Sobriety Substance use type: marijuana Details: had marijuana today-2 Caregiver/Support person: No Housing: house Communication Needs: None current occupation: PET HOUSE SITTER Pets and animals: No Sexually active: Yes Do you think of yourself as: straight/heterosexual Current gender identity: male What is your relationship status?: How often do you talk on the phone with friends or family?: three or more times per week How often do you get together with friends or relatives?: once per week How often do you attend sabianist or amish services?: decline to answer Do you belong to any clubs or organized social groups?: no Panel score (0-1 are the most socially isolated patients): 1 What type of physical activity do you participate in: walking and other Duration: 15-30 minutes/day Frequency: 3-4 times per week Quin/Spiritism: None Special quin needs: No Seatbelt use: always Helmet use: Yes Helmet use: sometimes Drive intox or ride w/intox driver's education instructor: No Do you feel safe at home: Yes Do you feel safe in your relationship?: Yes History History 2 Para 0 Hx # Term Pregnancies 0 Multiple births 0 Hx # Pregnancies 0 Ectopic pregnancies 0 AB induced 1 Hx Number of Living Children 0 AB spontaneous 0 Exam Const General: cooperative and no acute distress HENMT Mouth: moist mucous membranes Throat: posterior oropharynx normal Eyes Conjunctivae: normal conjunctivae Sclera: normal sclerae Resp Auscultation: clear to auscultation bilaterally, no rales, no rhonchi and no wheezes Cardio Jugular venous pressure: no JVD Rate: regular rate and not tachycardic Rhythm: regular rhythm Skin Rashes: rashes noted (Urticaria involving face, neck and upper chest) Neuro General: patient alert and patient awake Psych Appearance: grossly normal Mental Status: mental status grossly normal Affect: anxious affect Course Vital Signs Vital signs: Vital Signs Temperature 36.6 C 06/30/19 10:10 Pulse 81 06/30/19 10:10 Respiratory Rate 17 06/30/19 10:10 Blood Pressure 123/76 06/30/19 10:10 Pulse Oximetry 100 06/30/19 10:10 Temperature 36.6 C 06/30/19 10:10 Temperature Source Temporal Artery Scan 06/30/19 10:10 Pulse 81 06/30/19 10:10 Respiratory Rate 17 06/30/19 10:10 Respiratory Effort 06/30/19 10:13 Blood Pressure 123/76 06/30/19 10:10 Blood Pressure Position Sitting 06/30/19 10:10 Pulse Oximetry 100 06/30/19 10:10 Oxygen Delivery Method Room Air 06/30/19 10:10 Oxygen Flow Rate 0 06/30/19 10:10 Pain Level 10 06/30/19 10:10
[2019-06-30] MEDS: diphenhydrAMINE 25 MG CAP 50 MG PO (10:32)
[2019-06-30] MEDS: methylPREDNISolone SUCC 40 MG VIAL 60 MG IM (10:33)
== END 2019-06-30 10:40 | disposition home or self-care (01) ==
PROVIDERS: Emergency Provider Student in an Organized Health Care Education/Training Program; PCP Family Medicine
DX: O99.712 Diseases of the skin and subcutaneous tissue complicating pregnancy, second trimester (principal); L50.8 Other urticaria; T78.40XA Allergy, unspecified, initial encounter; Z3A.20 20 weeks gestation of pregnancy
CPT/HCPCS: 96372; 99284

== ENCOUNTER 2019-08-25 10:55 | Outpatient (REF) | payer MEDICAID, SELFPAY ==
[2019-08-25 12:06] LABS: HCT 33.4 % (36.0-46.0); HGB 11.1 g/dL (12.0-15.5); Mean Corp. HGB Concentration 33.2 g/dL (32.0-36.0); Mean Corpuscular Hemoglobin 30.1 pg (27.0-33.0); Mean Corpuscular Volume 90.5 fL (80-95); Platelet Count 255 x1000/uL (130-400); RBC 3.69 m/cumm (4.00-5.20); RBC Distribution Width 12.5 % (11.7-14.6); White Blood Cell Count 12.45 k/cumm (4.4-10.8)
[2019-08-25 12:09] LABS: Glucose,1 Hr (Glucola) 107 mg/dL (80-140)
== END 2019-08-25 11:15 ==
LOC: LBN 10:55
PROVIDERS: PCP Family Medicine; Visit Provider Advanced Practice Midwife
DX: Z34.93 Encounter for supervision of normal pregnancy, unspecified, third trimester (principal); Z3A.28 28 weeks gestation of pregnancy
CPT/HCPCS: 82950; 85027

== ENCOUNTER 2019-09-22 00:37 | Outpatient (CLI) | payer MEDICAID, SELFPAY ==
--- NOTE | 2019-09-22 06:45 | DI.US_ITS ---
EXAM: US OB [facility] [facility] CLINICAL HISTORY: placental lakes Vs. subchorionic hemorrhage [facility] [place], Z34.90. TECHNIQUE: Transabdominal obstetrical ultrasound performed. COMPARISON: US US OB 1ST [facility] from 04/13/2019 FINDINGS:: Number of fetuses: One. position: Vertex. Placental location: Anterior. No evidence of previa. No placental lakes or subchorionic hemorrhage is seen. BIOMETRIC DATA: BPD: 77mm = 30+ 5 weeks HC: 283mm = 31 weeks AC: 277mm = 31+5 weeks FL: 61 mm = 31+ 6 weeks EFW: 1798 gms 34% Composite Age: 30 1+2 weeks EDC: 22 November 2019 Heart Rate: 175 BPM Amniotic fluid index: 17.8 cm. Amount of fluid is within normal limits. IMPRESSION: No placental abnormality is identified. size and weight are within the expected range. DATA REPOSITORY:
== END 2019-09-22 00:57 ==
PROVIDERS: PCP Family Medicine; Visit Provider Advanced Practice Midwife
DX: Z34.93 Encounter for supervision of normal pregnancy, unspecified, third trimester (principal); Z3A.31 31 weeks gestation of pregnancy
CPT/HCPCS: 76816

== ENCOUNTER 2019-10-27 10:17 | Outpatient (CLI) | payer MEDICAID, SELFPAY ==
[2019-10-27 12:59] LABS: *AMPHETAMINES SCREEN URINE Negative (Negative); *BARBITURATES SCREEN URINE Negative (Negative); *BENZODIAZEPINES SCREEN URINE Negative (Negative); Cannabinoids THC POSITIVE (Negative); Cocaine Screen,Urine Negative (Negative); METHADONE URINE SCREEN Negative (Negative); OPIATES URINE SCREEN Negative (Negative)
[2019-10-27 13:00] LABS: Tricyclic Antidepressants Negative (Negative)
== END 2019-10-27 10:37 ==
PROVIDERS: Advanced Practice Midwife; PCP Family Medicine; Visit Provider Advanced Practice Midwife
DX: O36.8130 Decreased fetal movements, third trimester, not applicable or unspecified (principal); Z3A.36 36 weeks gestation of pregnancy
CPT/HCPCS: 80307; 59025; 87081

== ENCOUNTER 2019-10-28 01:33 | Outpatient (CLI) | payer MEDICAID, SELFPAY ==
--- NOTE | 2019-10-28 | DI.US_ITS ---
EXAM: US OB [facility] CLINICAL HISTORY: interval growth,Z34.90. TECHNIQUE: Transabdominal obstetrical ultrasound performed. COMPARISON: US US OB [facility] from 09/22/2019 FINDINGS: Transabdominal obstetrical ultrasound performed. FINDINGS: Number of fetuses: One. position: Breech heart rate: 143 bpm. Placental location: Anterior no evidence of previa. BIOMETRIC DATA: EFW: 2783 grms 29% Composite Age: 36 weeks EDC: 11/25/2019 Amniotic fluid index: 16.1 cm. Visually, amount of fluid is within normal limits. ANATOMICAL SURVEY: Within normal limits. IMPRESSION: 1. Single live intrauterine gestation as above. 2. Estimated gestational age is 36 weeks. DATA REPOSITORY:
== END 2019-10-28 01:53 ==
PROVIDERS: PCP Family Medicine; Visit Provider Advanced Practice Midwife
DX: Z34.93 Encounter for supervision of normal pregnancy, unspecified, third trimester (principal)
CPT/HCPCS: 76816

== ENCOUNTER 2019-11-21 01:21 | Inpatient (IN) | payer MEDICAID, SELFPAY ==
[2019-11-21] MEDS: Penicillin G POT. 5,000,000 UNITS in Normal Saline 100 ML 200 UNITS IVPB (03:07)
[2019-11-21] MEDS: Normal Saline Flush 10 ML SYR IVP ×3 (03:08→16:20)
[2019-11-21 03:28] LABS: Abs Immature Grans 0.13 10^3/uL (0.0-0.06); Absolute Basophil Count 0.06 10^3/uL (0.0-0.2); Absolute Lymphocyte Count 2.76 10^3/uL (1.2-3.4); Absolute Neutrophil Count 11.83 10^3/uL (1.2-6.7); Basophils % 0.4; HCT 36.4 % (36.0-46.0); HGB 12.2 g/dL (11.2-15.7); Immature Grans % 0.8; Lymphocytes % 17.1; MCH 29.2 pg (27.0-33.0); MCHC 33.5 % (32.0-36.0); MCV 87.1 fL (80-95); MPV 11.9 fL (8.0-11.0); Monocytes % 8.5; Neutrophils % 73.2; Nucleated RBC 0 %; Platelet Count 249 10^3/uL (130-400); RBC 4.18 10^6/uL (3.93-5.22); RDW-SD 38.5 fL; WBC 16.16 10^3/uL (4.4-10.8)
[2019-11-21 03:38] LABS: Absolute Monocyte Count 1.37 10^3/uL (0.1-0.8)
[2019-11-21] MEDS: Penicillin G POT. 3,000,000 UNITS in Normal Saline 50 ML 100 UNITS IVPB ×4 (08:24→20:19)
[2019-11-21] MEDS: miSOPROStol 25 MCG TAB SL (11:28)
[2019-11-21] MEDS: miSOPROStol 25 MCG TAB PO ×2 (16:20→20:39)
[2019-11-22] MEDS: Penicillin G POT. 3,000,000 UNITS in Normal Saline 50 ML 100 UNITS IVPB ×2 (00:16→04:22)
[2019-11-22] MEDS: Normal Saline Flush 10 ML SYR IVP ×3 (00:17→08:40)
[2019-11-22] MEDS: miSOPROStol 25 MCG TAB PO ×2 (00:48→04:49)
[2019-11-22 06:13] LABS: COVID-19 RT-PCR UVMMC Result Negative (Negative)
[2019-11-22] MEDS: Lactated Ringers 1,000 ML 200 ML IV ×2 (08:39→09:15)
[2019-11-22] MEDS: AZITHROMYCIN 250 MG in Normal Saline 250 ML IVPB ×2 (08:41→09:30)
[2019-11-22] MEDS: ceFAZolin 1 GM/50 ML BAG 50 GM (08:42)
--- NOTE | 2019-11-22 08:48 | W.PM.HP.N ---
Date of service: 11/22/19 Time of Service: 08:49 Assessment and Plan Assessment and plan (1) Labor presentation, breech: Status: Acute Assessment and plan: Patient has consented to a primary delivery for breech presentation. Risks and benefits of the procedure were discussed with the patient including the risk of infection bleeding damage surrounding structures including bowel bladder. Her questions were answered OR team has been called. Qualifiers: Fetus number: single or unspecified fetus Qualified Code(s): O32.1XX0 - Maternal care for breech presentation, not applicable or unspecified History of Present Illness History of Present Illness Chief Complaint: Breech in labor at 40.3 weeks EGA Narrative: Patient is a 39-year-old G2, P0 female [facility] who had spontaneous rupture membranes early on the morning of 11/21/2019. Her cervix was unfavorable upon admission and she received misoprostol for a total of 5 doses. Her cervix had dilated to 3 cm at which time a repeat sterile vaginal exam noted a breech presentation. The breech presentation was confirmed by bedside ultrasound. Patient has been counseled regarding the need for a delivery which she has consented to. Her course has been complicated by a pruritic rash on her abdomen and arms treated with hydroxyzine. Patient has a history of anxiety treated with Wellbutrin and clonazepam. She was recommended to take aspirin for her advanced maternal age. GBS rectovaginal culture was positive. She had appropriate growth as documented by OB ultrasounds. Review of Systems Constitutional Constitutional: Reports system reviewed and no additional complaints, except as documented Cardiovascular Cardiovascular: Reports system reviewed and no additional complaints, except as documented Respiratory Respiratory: Reports system reviewed and no additional complaints, except as documented Gastrointestinal Gastrointestinal: Reports system reviewed and no additional complaints, except as documented (Clear liquids during the night) Genitourinary Genitourinary: Reports system reviewed and no additional complaints, except as documented Integumentary/Breasts Skin/Breast: Reports pruritus and Reports rash Psychiatric Psychiatric: Reports as per [facility] Medical History (Updated 11/22/19 @ 08:57 by Anne-Marie Figueroa MD) Allergic reaction (Acute) 06/30/2019 swelling on right side of face, throat pain, urticaria, and papules. Patient recommended to be seen in emergency room. Flank pain in patient (Acute) Marijuana smoker (Acute) Migraine headache without aura (Acute) Therapeutic (Acute) Surgical History Fracture, Open Treatment (~2006) left elbow Family History Mother No problems noted. Father No problems noted. Brother No problems noted. Aunt Cancer Maternal Uncle Pancreatic cancer STAGE 4 Maternal Cousin Bladder cancer Maternal Grandfather No problems noted. Paternal Grandfather No problems noted. Maternal Grandmother No problems noted. Paternal Grandmother No problems noted. Social History Smoking/Tobacco Use Status: Never Alcohol Intake: former Drug use: Current Sobriety Substance use type: marijuana Details: had marijuana today-2 Caregiver/Support person: No Housing: house Communication Needs: None current occupation: PROGRESSIVE CARE NURSE Pets and animals: No Sexually active: Yes Do you think of yourself as: straight/heterosexual Current gender identity: male What is your relationship status?: How often do you talk on the phone with friends or family?: three or more times per week How often do you get together with friends or relatives?: once per week How often do you attend anabaptist or hoahaoism services?: decline to answer Do you belong to any clubs or organized social groups?: no Panel score (0-1 are the most socially isolated patients): 1 What type of physical activity do you participate in: walking and other Duration: 15-30 minutes/day Frequency: 3-4 times per week Quin/Evangelical: None Special quin needs: No Seatbelt use: always Helmet use: Yes Helmet use: sometimes Drive intox or ride w/intox 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 Do you feel safe at home: Yes Do you feel safe in your relationship?: Yes History History 2 Para 0 Hx # Term Pregnancies 0 Multiple births 0 Hx # Pregnancies 0 Ectopic pregnancies 0 AB induced 1 Hx Number of Living Children 0 AB spontaneous 0 Meds Home Medications and Allergies Home Medications Medication Instructions Recorded Confirmed Type epinephrine 0.3 mg/0.3 mL 0.3 mg IM ONCE 11/26/17 11/21/19 History injection, auto-injector acyclovir 400 mg tablet 400 mg PO 5X/DAY PRN #25 tab 05/08/19 11/21/19 Rx aspirin 81 mg tablet,delayed 81 mg PO DAILY 05/26/19 11/21/19 History release prenat.vits,shanae,tbj-aksj-vjjiu 1 tab PO DAILY 05/26/19 11/21/19 History albuterol sulfate 90 mcg/actuation 2 puff IH QID PRN #18 gm 06/12/19 11/21/19 Rx aerosol inhaler magnesium 500 mg PO DAILY 06/29/19 11/21/19 History bupropion HCl 150 mg 24 hr tablet, 150 mg PO QAM 09/22/19 11/21/19 History extended release clonazepam 0.5 mg tablet 0.5 mg PO BID PRN #15 tab 10/21/19 11/21/19 Rx hydroxyzine HCl 25 mg tablet 25 mg PO QID PRN 11/16/19 11/21/19 History Allergies Allergy/AdvReac Type Severity Reaction Status Date / Time venom-honey bee Allergy Severe Verified 11/21/19 03:10 Exam Const General: comfortable and no acute distress Neck Neck: normal visual inspection Resp Effort & Inspection: normal respiratory effort Cardio Rate: regular rate Rhythm: regular rhythm GI Inspection: scar (Midline vertical) Palpation: soft (Gravid) Other: Breech presentation confirmed by repeat bedside ultrasound Skin Lesions: lesion noted (Abdomen arms, solitary lesions with crater and erythema) Extrem General: normal to inspection and full ROM Psych Appearance: grossly normal Mental Status: mental status grossly normal Speech and Movement: speech and movement normal Mood: anxious mood Affect: normal affect Attitude: cooperative Thought Process: normal Thought Content: normal Insight: insight good Judgment: judgment good Results Labs Result diagrams: 11/21/19 02:50 Labs: Laboratory Results - last 24 hr 11/21/19 02:45 COVID-19 PCR Negative Nasopharyn COVID-19 PCR Not Applicable Ref Test Perform Site [facility] lab COVID-19 Screening Have you,or household,traveled outside [place] in last 14 days?: NO
--- NOTE | 2019-11-22 10:48 | ROE_ITS ---
Operative Note Operative Note DATE OF PROCEDURE: 11/22/19 PRE-OP DIAGNOSIS: breech presentation. in labor POST-OP DIAGNOSIS: same PROCEDURE: primary LTCS SURGEON: Anne-Marie Figueroa COIL PLACER: Marti Murcia ANESTHESIA: spinal ESTIMATED BLOOD LOSS: 500 PATHOLOGY: none sent COMPLICATIONS: None Patient was transported to: floor Patient's condition: stable Indications: 39yo female with SROM at term w/o labor. Received Misoprostil for cervical ripening. Upon reaching 3cm dilation laurent breech position noted. Pt was instructed in need for delivery. Findings: Viable female in laurent breech presentation. Minimal clear amniotic fluid. Wt 6lb6oz. (2900gm) Apgars 9/9. Nl uterus, nl adnexa. Procedure Description: Patient was taken to the operating room she is placed in the sitting position and spinal anesthesia was administered without difficulty. She was then placed in the dorsal supine position with a leftward tilt. SCDs and a Thurston catheter to gravity drainage were placed. A vaginal prep with Betadine was performed and the patient was prepped and draped in the usual sterile fashion. After a adequate level of anesthesia was achieved a Pfannenstiel skin incision was made approximately 2 cm superior to the pubic symphysis using a scalpel and the underlying subcutaneous tissue dissected using Bovie electrocautery to the level of the rectus fascia. The rectus fascia was then nicked in the midline and the fascial incision extended laterally using curved Nicole scissors. 2 Ko lana clamps were applied to the inferior rectus fascia and the rectus fascia was dissected off of the underlying rectus muscles using Bovie electrocautery and blunt technique. A similar technique was carried out on the superior rectus fascia incision. Rectus muscles were then in the midline and the peritoneum entered bluntly. The peritoneal incision was extended laterally using blunt technique. A bladder blade was then placed in the incision and thevesico-uterine peritoneum over lower uterine segment was incised with curved Nicole scissors and the bladder flap created bluntly. Bladder blade was adjusted and the bladder flap retracted away from the operative field. A scalpel was used to incise the lower uterine segment in a transverse fashion. The uterine incision was extended bluntly and the amniotic sac was ruptured and a finger was placed on each anterior superior iliac crest of the breech presentation and the buttocks followed by the trunk were delivered to the level of the shoulders. Both arms were swept across the chest and the head was delivered atraumatically. The cord was doubly clamped and cut and the handed off to the waiting pediatric team. Cord blood was obtained and the placenta was extracted with a combination of fundal massage and gentle cord traction. The uterus was exteriorized cleared of all clots and debris and the uterine incision reapproximated with a running lock suture of 0 Vicryl followed by a second imbricating suture of 0 Vicryl. Uterine incision was noted be hemostatic. The uterus was returned to the abdomen. The paracolic gutters were cleared of all clots and debris. After careful inspection of the anterior abdominal wall, the bladder flap and the uterine incision the visceral peritoneum was reapproximated with a running suture of 2-0 Vicryl. The rectus fascia was closed with a running suture of 0 Vicryl. Subcutaneous tissue space was closed with a running suture of 2-0 Vicryl and the skin was closed with a subcuticular suture of 4-0 Vicryl. Skin glue was used to seal the incision and a dry sterile dressing was placed over the incision Uterus was massaged for any remaining clots and debris's. The patient was [facility] and transported to recovery area in stable condition. All sponge lap needle counts are correct x2.
[2019-11-22] MEDS: Lactated Ringers 1,000 ML 120 ML IV ×2 (13:33→21:34)
[2019-11-22] MEDS: Ketorolac 30 MG/ML VIAL IVP ×2 (15:55→22:23)
[2019-11-23] MEDS: Ketorolac 30 MG/ML VIAL IVP (04:20)
[2019-11-23] MEDS: Normal Saline Flush 10 ML SYR IVP (04:20)
[2019-11-23 08:06] LABS: HCT 28.1 % (36.0-46.0); HGB 9.3 g/dL (11.2-15.7); MCH 29.4 pg (27.0-33.0); MCHC 33.1 % (32.0-36.0); MCV 88.9 fL (80-95); MPV 11.4 fL (8.0-11.0); Platelet Count 220 10^3/uL (130-400); RBC 3.16 10^6/uL (3.93-5.22); RDW 12.2 % (11.7-14.6); RDW-SD 39.5 fL; WBC 15.72 10^3/uL (4.4-10.8)
[2019-11-23] MEDS: Prenatal Multivitamin w/CA,FE TAB 1 TAB PO (09:50)
[2019-11-23] MEDS: buPROPion-XL 150 MG TABCR PO (09:50)
[2019-11-23] MEDS: Magnesium Gluconate 500 MG TAB PO (09:51)
[2019-11-23] MEDS: Acetaminophen 325 MG TAB 650 MG PO ×2 (10:03→16:05)
[2019-11-23] MEDS: Ibuprofen 600 MG TAB (10:03)
[2019-11-23] MEDS: Ibuprofen 600 MG TAB PO (16:07)
[2019-11-23] MEDS: HYDROcodone 5/Acetaminophen 325 TAB PO (20:10)
[2019-11-24] MEDS: HYDROcodone 5/Acetaminophen 325 TAB PO ×2 (03:35→08:29)
[2019-11-24] MEDS: buPROPion-XL 150 MG TABCR PO (08:30)
[2019-11-24] MEDS: Prenatal Multivitamin w/CA,FE TAB 1 TAB PO (08:30)
--- NOTE | 2019-11-24 10:55 | W.PM.DS.N ---
Date of service: 11/24/19 Time of Service: 10:55 DS: Diagnosis Discharge Diagnosis (1) Labor presentation, breech: Status: Acute (2) delivery, delivered, current hospitalization: Status: Acute Discharge Plan Disposition Patient Disposition: HOME Condition: Good Discharge Details Reason For Visit: BREECH PRESENTATION Admit Date/Time: 11/22/19 11:08 Admit Provider: Paulette Gilliland Attending Provider: Anne-Marie Figueroa Primary Care Provider: Savanah Matuteigitte [facility] Course Hospital Course: 39yo female with SROM at term w/o labor. Received Misoprostil for cervical ripening. Upon reaching 3cm dilation laurent breech position noted. Pt was instructed in need for delivery. Findings: Viable female in laurent breech presentation. Minimal clear amniotic fluid. Wt 6lb6oz. (2900gm) Apgars 9/9. Nl uterus, nl adnexa. Discharged home on postop day #3 successfully breast-feeding with ibuprofen and occasional Vicodin for pain. Plan is [facility] for a wound inspection. She will continue to take her Wellbutrin XL when at home. We will discuss post contraception at the time of her next office visit. Home Meds and New Rx's Prescriptions: No Action epinephrine 0.3 mg/0.3 mL auto-injector 0.3 mg IM ONCE RF: 0 bupropion HCl [Wellbutrin XL] 150 mg tablet extended release 24 hr 150 mg PO QAM RF: 0 aspirin 81 mg tablet,delayed release (DR/EC) 81 mg PO DAILY RF: 0 prenat.vits,shanae,[id number]-[id number] Tablet 1 tab PO DAILY RF: 0 hydroxyzine HCl 25 mg tablet 25 mg PO QID PRNRF: 0 acyclovir 400 mg tablet 400 mg PO 5X/DAY PRN (Reason: herpes labialis) Qty: 25 RF: 3 albuterol sulfate [ProAir HFA] 90 mcg/actuation HFA aerosol inhaler 2 puff IH QID PRN (Reason: bronchospasm) Qty: 18 RF: 6 clonazepam 0.5 mg tablet 0.5 mg PO BID PRN (Reason: anxiety) Qty: 15 RF: 0 hydrocodone-acetaminophen 5-325 mg tablet 1 tab PO Q6H MDD 4 PRN (Reason: pain) Qty: 7 RF: 0 ibuprofen 600 mg tablet 600 mg PO Q6H PRN (Reason: pain) Qty: 30 RF: 1 magnesium 250 mg Tablet 500 mg PO DAILY RF: 0 Discharge Instructions Additional Instructions: [phone] to make a postop appoint with Dr. Figueroa in 1 week. Plan 6 weeks visit with CN service. Stand Alone Forms: BC Discharge Instruc, BC Instructions Activity:: Activity as Tolerated Equipment/Supplies:: No Equipment Needed Diet:: As Tolerated Discharge Orders Discharge Orders: Discharge Order (Routine); Ordered 11/24/19 Ordered By: Anne-Marie Figueroa DS: Summary Status at Discharge Functional status at discharge: independent ambulation Overall status at discharge: patient is progressing back to baseline Mental Status: mental status grossly normal Speech and Movement: speech and movement normal Mood: congruent mood Affect: normal affect Exam Psych Mental Status: mental status grossly normal Speech and Movement: speech and movement normal Mood: congruent mood Affect: normal affect DS: Data Vitals/I&O Vitals and I&O: Vital Signs Pain Level 8 11/24/19 08:29 Intake & Output 11/23/19 11/23/19 11/24/19 11:59 23:59 11:59 Intake Total 1450 / 1450 Balance 1450 / 1450 Intake: IV 1450 / 1450 [facility] Medical History (Updated 11/24/19 @ 10:56 by Anne-Marie Figueroa MD) Allergic reaction (Acute) 06/30/2019 swelling on right side of face, throat pain, urticaria, and papules. Patient recommended to be seen in emergency room. Flank pain in patient (Acute) Marijuana smoker (Acute) Migraine headache without aura (Acute) Therapeutic (Acute) Surgical History (Updated 11/24/19 @ 10:56 by Anne-Marie Figueroa MD) Fracture, Open Treatment (~2006) left elbow Family History Mother No problems noted. Father No problems noted. Brother No problems noted. Aunt Cancer Maternal Uncle Pancreatic cancer STAGE 4 Maternal Cousin Bladder cancer Maternal Grandfather No problems noted. Paternal Grandfather No problems noted. Maternal Grandmother No problems noted. Paternal Grandmother No problems noted. Social History Smoking/Tobacco Use Status: Never Alcohol Intake: former Drug use: Current Sobriety Substance use type: marijuana Details: had marijuana today-2 Caregiver/Support person: No Housing: house Communication Needs: None current occupation: [employer] MANAGER Pets and animals: No Sexually active: Yes Do you think of yourself as: straight/heterosexual Current gender identity: male What is your relationship status?: How often do you talk on the phone with friends or family?: three or more times per week How often do you get together with friends or relatives?: once per week How often do you attend muslim or episcopalian services?: decline to answer Do you belong to any clubs or organized social groups?: no Panel score (0-1 are the most socially isolated patients): 1 What type of physical activity do you participate in: walking and other Duration: 15-30 minutes/day Frequency: 3-4 times per week Quin/Orthodoxy: None Special quin needs: No Seatbelt use: always Helmet use: Yes Helmet use: sometimes Drive intox or ride w/intox 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
== END 2019-11-24 12:10 | disposition home or self-care (01) | DRG 787 ==
PROVIDERS: Admitting Provider Advanced Practice Midwife; PCP Family Medicine; Visit Provider Obstetrics & Gynecology Gynecology
PROC: 10D00Z1 Extraction of Products of Conception, Low, Open Approach (ICD-10-PCS; CPT 59514; principal; 2019-11-22 09:20)
DX: O32.1XX0 Maternal care for breech presentation, not applicable or unspecified (principal); O99.324 Drug use complicating childbirth; Z37.0 Single live birth; O77.0 Labor and delivery complicated by meconium in amniotic fluid; O65.5 Obstructed labor due to abnormality of maternal pelvic organs; O48.0 Post-term pregnancy; O42.02 Full-term premature rupture of membranes, onset of labor within 24 hours of rupture; O99.824 Streptococcus B carrier state complicating childbirth; O75.81 Maternal exhaustion complicating labor and delivery; O99.344 Other mental disorders complicating childbirth; O09.523 Supervision of elderly multigravida, third trimester; F12.10 Cannabis abuse, uncomplicated; Z3A.40 40 weeks gestation of pregnancy; F41.9 Anxiety disorder, unspecified; Z79.82 Long term (current) use of aspirin
CPT/HCPCS: 59514; 36415; 85027; 86850; 86900; 86901; NC; U0003; 85025; G0378; J0456; J0690; J1100; J1885; J2405; J2540; J2590; J3010; J3490

== ENCOUNTER 2020-01-05 11:40 | Outpatient (REF) | payer MEDICAID, SELFPAY ==
--- NOTE | 2020-01-05 11:30 | PAPFT_PTH ---
PATIENT: Terra Bruner LOC: [facility] U#:[id number] AGE/SX: 39/F ROOM: RE01/05/[address]: Anne-Marie Figueroa : 1980 BED: DIS: 01/05/2020 SPEC #: [id number] RECD: 01/05/20 12:50 STATUS: [place] REQ #: [id number] CUBA: 01/05/20 11:[address]: Anne-Marie Figueroa DEPT: [facility] Cytology RECD BY: Alis Ferguson ENTERED: 01/05/20 12:50 SP TYPE: PAPFT OT DR: Gala Matute MD Tissues: 1 - CX/ENDOCX FOR PAP SMEARS Procedures: PAP THIN PREP/UVM Screening HPV DNA PROBE Comments: [id number]
== END 2020-01-05 12:00 ==
LOC: LBN 11:40
PROVIDERS: PCP Family Medicine; Visit Provider Obstetrics & Gynecology Gynecology
DX: Z12.4 Encounter for screening for malignant neoplasm of cervix (principal); Z11.51 Encounter for screening for human papillomavirus (HPV)
CPT/HCPCS: 88142; 87624

== ENCOUNTER 2020-02-25 04:46 | Outpatient (CLI) | payer MEDICAID, SELFPAY ==
[2020-02-27 10:03] LABS: COVID-19 RT-PCR Result NEGATIVE (Negative)
== END 2020-02-25 05:06 ==
PROVIDERS: PCP Family Medicine; Visit Provider Family Medicine
DX: Z20.828 Contact with and (suspected) exposure to other viral communicable diseases (principal)
CPT/HCPCS: U0003

== ENCOUNTER 2020-06-16 18:49 | Emergency (ER) | payer MEDICAID, SELFPAY ==
[2020-06-16 18:57] VITALS: BP 127/70; PULSE 81; RESP 16; TEMP 36.2; O2SAT 99
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
--- NOTE | 2020-06-16 20:05 | DI.RAD_ITS ---
EXAM: XR HAND RT COMPLETE CLINICAL HISTORY: Right thumb pain, R/O fracture/dislocation TECHNIQUE: COMPARISON: CR,XR XR WRIST RT COMPLETE from 06/16/2020 FINDINGS: Four views of the wrist and three views of the hand were obtained. No fracture is seen. IMPRESSION: RADIATION DOSE DELIVERED: Total DLP
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
[2020-06-16 20:28] VITALS: BP 127/70; PULSE 81; RESP 16; TEMP 36.2; O2SAT 99
== END 2020-06-16 20:28 | disposition home or self-care (01) ==
PROVIDERS: Emergency Provider Registered Nurse Emergency; PCP Family Medicine
DX: S63.8X1A Sprain of other part of right wrist and hand, initial encounter (principal); W50.1XXA Accidental kick by another person, initial encounter; X50.9XXA Other and unspecified overexertion or strenuous movements or postures, initial encounter
CPT/HCPCS: 29125; 81025; 99284; 73110; 73130; 99283

== ENCOUNTER 2022-02-19 04:18 | Outpatient (CLI) | payer MEDICAID, SELFPAY ==
[2022-02-19 10:06] LABS: Anion Gap 8.4 mmol/L (3-11); BUN 16 mg/dL (7-18); CO2 27.6 mmol/L (21.0-32.0); CREATININE 0.7 mg/dL (0.55-1.02); Calcium 9.3 mg/dL (8.5-10.1); Calculated LDL 91 mg/dL (<100); Chloride 103 mmol/L (98-107); Cholesterol 170 mg/dL (<200); Estimated GFR 112.05 (mL/min/1.73m2); Glucose 107 mg/dL (74-106); HDL Cholesterol 70 mg/dL (40-60); Potassium 3.8 mmol/L (3.5-5.1); Sodium 139 mmol/L (136-145); Triglyceride 45 mg/dL (<150)
== END 2022-02-19 04:19 | disposition home or self-care (01) ==
LOC: LBO 04:18
PROVIDERS: PCP Nurse Practitioner Family; Visit Provider Nurse Practitioner Family
DX: E78.5 Hyperlipidemia, unspecified (principal)
CPT/HCPCS: 36415; 80048; 80061

== ENCOUNTER → 2023-04-19 01:24 | Outpatient (CLI) | payer MEDICAID, SELFPAY ==
--- NOTE | 2023-04-19 12:21 | DI.MAMMO_ITS ---
Exam(s) MAMMO SCREENING EXAM: MAMMO SCREENING CLINICAL HISTORY: screening,BASELINE,Z12.39 TECHNIQUE: Bilateral full field digital CC and MLO mammographic images were obtained with 3D tomosyn thesis and utilizing computer aided detection (CAD). COMPARISON: Available for comparison. FINDINGS: Masses/Architectural Distortion: None seen. Microcalcifications: No suspicious pleomorphic-type are seen. Skin Thickening/Nipple Retraction: None. IMPRESSION: 1. No significant interval change with no specific features of malignancy noted. 2. Unless there is more urgent need, screening mammography is recommended, as per [place] [employer] guidelines. BI-RADS Category 1 - Negative Breast Density - Category C - Heterogeneously dense Breast density category C or D implies that the patient has dense breast tissue. Dense breast tissue is very common and is not abnormal but dense breast tissue can make it harder to find cancer on a ma mmogram. Also, dense breast tissue may increase their breast cancer risk. This information about the result of the mammogram report was provided to the patient to raise their awareness. Use this report when you speak with the patient about their risks for breast cancer, which includes their family hist ory. At that time, you may recommend for more screening tests (Ultrasound or MRI) as they might be us eful based on their risk. A negative radiographic report should not delay biopsy if a dominant or clinically suspicious mass is present. Up to ten percent of cancers are not identified on mammography. A negative report may reinforce clinical impression. Adenosis and dense breasts may obscure an underlying neoplasm. False positive reports average 6 to 10%. Patient will receive a letter notifying them of these results.
== END ==
PROVIDERS: PCP Nurse Practitioner Family; Visit Provider Nurse Practitioner Family
DX: Z12.31 Encounter for screening mammogram for malignant neoplasm of breast (principal); R92.333 Mammographic heterogeneous density, bilateral breasts
CPT/HCPCS: 77063; 77067

== ENCOUNTER 2024-06-23 00:35 | Outpatient (CLI) | payer MEDICAID, SELFPAY ==
--- NOTE | 2024-06-23 06:45 | DI.MRI_ITS ---
Exam(s) MR LOWER JOINT RT WO EXAM: MR LOWER JOINT RT WO CLINICAL HISTORY: INJURY MENISCUS RT KNEE, S83.8X1a,? LATERAL MENISCAL TEAR. TECHNIQUE: Multiplanar multisequence MRI was performed. COMPARISON: No exams were available for comparison FINDINGS: Exam is mildly limited by motion. BONES: There is no fracture or contusion pattern. Mild spurring at the lateral femoral condyle and lateral tibial plateau. JOINTS: A small joint effusion is present. Articular cartilage: Patellofemoral joint: Articular cartilage is unremarkable. Medial femoral tibial joint: Articular cartilage is unremarkable. Lateral femoral tibial joint: Articular there is a small focal defect in the cartilage at the production posting clerk ior aspect of the lateral femoral condyle. LIGAMENTS/TENDONS: Anterior Cruciate: Unremarkable. Posterior Cruciate: Unremarkable. Medial Collateral:Unremarkable. Lateral Collateral ligament complex: Unremarkable. Extensor mechanism: Unremarkable. Medial retinaculum: Unremarkable. Lateral retinaculum: Unremarkable. Popliteus: Unremarkable. MENISCI: The medial meniscus is unremarkable. The lateral meniscus shows some increased signal in the body and anterior horn. The meniscus is mild ly peripherally displaced consistent with degenerative changes. MUSCLES: Unremarkable. SOFT TISSUES: Unremarkable. IMPRESSION: Degenerative changes of the lateral meniscus with likely superimposed small tear in the body and ante rior horn. Small cartilage defect at the posterior femoral condyle. DATA REPOSITORY:
== END 2024-06-23 00:55 ==
LOC: DI 00:35
PROVIDERS: PCP Nurse Practitioner Family; Visit Provider Nurse Practitioner Family
DX: S83.8X1A Sprain of other specified parts of right knee, initial encounter (principal); X58.XXXA Exposure to other specified factors, initial encounter
CPT/HCPCS: 73721

== ENCOUNTER 2024-07-15 00:34 | Outpatient (CLI) | payer MEDICAID, SELFPAY ==
--- NOTE | 2024-07-15 12:40 | DI.MAMMO_ITS ---
Exam(s) MAMMO SCREENING EXAM: MAMMO SCREENING CLINICAL HISTORY: screening,z12.39 TECHNIQUE: Mammograms were interpreted according to the usual protocol including computer analysis w [employer] CAD system, tomosynthesis and C-view imaging. COMPARISON: 2023 FINDINGS: The breasts are composed of heterogeneously dense fibroglandular densities, Breast Density category C . No suspicious masses or suspicious microcalcifications are seen. No skin thickening or abnormal axillary lymph nodes are seen. There has been no significant change from prior exams. IMPRESSION: BI-RADS Category 1, Negative mammogram. Yearly screening mammography is recommended. Breast Density Category C, heterogeneously Dense. The mammogram demonstrates the patient's breast tissue is dense. Dense breast tissue is very common a nd is not abnormal but dense breast tissue can make it harder to find cancer on a mammogram. Also, de nse breast tissue may increase breast cancer risk. This information about the result of the mammogram report was provided to the patient to raise their awareness. Use this report when you speak with the patient about their risks for breast cancer, which includes their family history. At that time, you may recommend additional screening tests (Ultrasound or MRI) as they might be useful based on their r isk. A negative radiographic report should not delay biopsy if a dominant or clinically suspicious mass is present. Up to ten percent of cancers are not identified on mammography. A negative report may reinforce clinical impression. Adenosis and dense breasts may obscure an underlying neoplasm. False positive reports average 6 to 10%.
== END 2024-07-15 00:54 ==
LOC: DI 00:34
PROVIDERS: PCP Nurse Practitioner Family; Visit Provider Nurse Practitioner Family
DX: Z12.31 Encounter for screening mammogram for malignant neoplasm of breast (principal); R92.333 Mammographic heterogeneous density, bilateral breasts
CPT/HCPCS: 77063; 77067

== ENCOUNTER 2024-07-22 11:59 | Outpatient (CLI) | payer MEDICAID, SELFPAY ==
--- NOTE | 2024-07-22 11:00 | DI.RAD_ITS ---
Exam(s) XR KNEE RT 3V AP,LAT,FRANC EXAM: XR KNEE RT 3V AP,LAT,FRANC CLINICAL HISTORY: RIGHT KNEE PAIN. TECHNIQUE: 2D digital imaging was performed. Three views. COMPARISON: No exams were available for comparison FINDINGS: BONES: No acute fracture is present. No bony destructive lesion is seen. JOINTS: The knee is normally aligned. No joint effusion is seen. The joint spaces are maintained. There is minimal periarticular spurring. SOFT TISSUE: Normal. IMPRESSION: Minimal degenerative change. DATA REPOSITORY: RADIATION DOSE DELIVERED:
== END 2024-07-22 12:00 | disposition home or self-care (01) ==
LOC: DIORS 11:59
PROVIDERS: PCP Nurse Practitioner Family; Visit Provider Student in an Organized Health Care Education/Training Program
DX: S83.8X1A Sprain of other specified parts of right knee, initial encounter (principal); M94.261 Chondromalacia, right knee
CPT/HCPCS: 73562

== ENCOUNTER 2024-10-13 02:55 | Outpatient (CLI) | payer MEDICAID, SELFPAY ==
--- NOTE | 2024-10-13 07:15 | DI.MRI_ITS ---
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 COMPARISON: MR MR LOWER JOINT RT WO from 06/23/2024 CR XR KNEE RT 3V AP,LAT,FRANC from 07/22/2024 FINDINGS: EFFUSION: There is a small amount of increased joint fluid, similar to the prior study. There are no obvious loose intra-articular bodies. Mild synovial thickening noted in lateral aspect the suprapatellar bursa and in the lateral aspect of the joint adjacent to the lateral femoral condyle.. There is no Sam cyst in the medial popliteal fossa. MARROW:There is no evidence of fracture, bone contusion, nor osteochondral defects.. The appears to be a tiny developing degenerative subarticular cysts in the inner aspect of the lateral tibial plateau subjacent to the the medial aspect of the anterior horn of the lateral meniscus. PATELLOFEMORAL COMPARTMENT: The quadriceps tendon is intact. The patellar ligament is intact. Although there is no significant thinning of the retropatellar cartilage, there is a deep focal fissure within the retropatellar cartilage over of the medial facet which is more evident than on the prior study. There is no osteochondral defect at this level nor abnormal intraosseous signal in the posterior aspect of the patella.There is no intraosseous signal to suggest recent patellar dislocation. There are no patellar retinacular tears. CRUCIATE LIGAMENTS: The anterior cruciate ligament is intact.The posterior cruciate ligament is intact. MEDIAL COMPARTMENT/MEDIAL MENISCUS: There are no tears of the medial meniscus evident.. There are no chondral defects nor osteochondral defects in the medial compartment. There are tiny marginal osteophytes off the outer aspect of the medial femoral condyle, similar to previous. There is no subarticular bone edema in the medial compartment. MEDIAL COLLATERAL LIGAMENT: Intact LATERAL COMPARTMENT/LATERAL MENISCUS: The previously described irregularity in the body and anterior horn of the lateral meniscus consistent with tear appears unchanged. There is overlying cartilage thinning in the outer 3rd of the lateral femoral condyle at this level, slightly more so than previous. There is no osteochondral defects. No subarticular bone edema. Small marginal osteophytes off the lateral compartment noted. ILIOTIBIAL BAND: Intact LATERAL COLLATERAL LIGAMENT COMPLEX: The fibular collateral ligament is intact. The biceps femoris tendon is intact.Popliteus muscle and tendon are intact. IMPRESSION: 1. Compared to the prior knee MRI of 06/23/2024 there is now a focal deep fissure in the retropatellar cartilage over the medial facet, more evident than on the prior study. There is no distinct osteochondral defect at this level nor subjacent bone edema in the patella. 2. Again noted is the previously described tear in the body and anterior horn of the lateral meniscus, unchanged. There is some overlying cartilage thinning in the outer 3rd weight-bearing surface of the lateral femoral condyle which appears slightly increased from previous but not associated with subarticular bone edema and there is no osteochondral defect at this level. 3. There are no tears of the medial meniscus and there are no cruciate nor collateral ligament tears. DATA REPOSITORY:
== END 2024-10-13 03:15 ==
LOC: DI 02:55
PROVIDERS: PCP Nurse Practitioner Family; Visit Provider Student in an Organized Health Care Education/Training Program
DX: M94.261 Chondromalacia, right knee (principal)
CPT/HCPCS: 73721